=== PATIENT | male | born 1995 | race Caucasian/White ===

== ENCOUNTER 2021-08-25 10:09 | Emergency (ER) | payer OTHER, SELFPAY ==
[2021-08-25 10:23] VITALS: BP 154/82; PULSE 85; RESP 16; TEMP 36.3; O2SAT 99; BMI 20.7
--- NOTE | 2021-08-25 10:28 | ED.UPPEXIN ---
HPI - Extremity Injury (Upper) General Chief Complaint: Wound/Laceration Stated Complaint: Got hand stuck in machine at work Time Seen by Provider: 08/25/21 10:13 Source: patient Mode of arrival: Ambulatory Limitations: no limitations History of Present Illness HPI narrative: 25-year-old male nonsmoker with noncontributory medical history presents with his mother and a chief complaint of a work related injury to his left hand. He works at a local [employer] facility and hand was caught in a conveyor belt. He has multiple lacerations with bleeding to most fingers of his left hand. He has full range of motion no painful. He denies any numbness or tingling. His tetanus will need to be updated. He is otherwise well and free of complaint Related Data Previous Rx's Medication Instructions Recorded cephalexin 500 mg capsule 500 mg PO Q6H 7 Days #28 cap 08/25/21 hydrocodone 5 mg-acetaminophen 325 1 tab PO Q4-6H PRN #10 tab 08/25/21 mg tablet Allergies Allergy/AdvReac Type Severity Reaction Status Date / Time succinylcholine Allergy Severe Anaphylaxis Verified 08/25/21 10:43 Review of Systems Review of Systems Narrative: GENERAL: Denies chills, fatigue, malaise, fever, sweats. HEENT: Denies sinus pain, ear pain, sore throat, difficulty swallowing, dizziness. RESPIRATORY: Denies dyspnea, cough, wheezing, hemoptysis, sputum. CARDIOVASCULAR: Denies chest pain, palpitations, orthopnea, edema, GASTROINTESTINAL: Denies nausea, vomiting, abdominal pain, diarrhea, constipation, melena. : Denies dysuria, frequency, incontinence, hematuria, urinary retention. MUSCULOSKELETAL: See HPI SKIN: Denies rash, skin lesions, or other NEUROLOGIC: see HPI PSYCHIATRIC: No concerning psychosocial issues. 12 point review of systems is negative except for those stated above Patient History Social History Smoking Status: Never smoker Smoking Status: Never smoker alcohol intake frequency: 0-2 drinks per day Substance Use Type: does not use Exam Narrative Exam Narrative: GENERAL: [25 year old patient appears stated age. Well-developed patient, in mild distress. HEAD: Atraumatic. Normocephalic. EYES: Pupils equal round and reactive. Extraocular motions intact. No scleral icterus. No injection or drainage. ENT: Nose without bleeding, purulent drainage. Throat without erythema, tonsillar hypertrophy or exudate. Airway patent. NECK: Trachea midline. Non tender CARDIOVASCULAR: Regular rate and rhythm without murmurs, gallops, or rubs. RESPIRATORY: Clear to auscultation. Breath sounds equal bilaterally. No wheezes, rales, or rhonchi. GASTROINTESTINAL: Abdomen soft, non-tender, nondistended. EXTREMITIES: Multiple injuries to fingers of left hand including a 2 x 1 cm area of soft tissue loss overlying the lateral portion of the proximal phalanx of the 5th finger, no active bleeding or suturable tissue. Full range of motion and sensation. Fourth finger has a small 0.5 cm deep laceration at the base, medial side of proximal phalanx with minimal active bleeding, no loss of strength or sensation. No obvious tendon involvement. Middle finger has a deep irregular 1.5 cm laceration overlying the PIP. This is visualized in a bloodless field and tendon glide is noted. No foreign body noted. Patient has full strength with flexion and extension of the finger. Sensation intact. Tip of index finger is macerated, no obvious nail, nail bed or nail fold involvement. Very irregular laceration without obvious tissue loss. BACK: Nontender without deformity or crepitance. No flank tenderness. NEURO: AOx3. SKIN: No rash or erythema of visible areas Initial Vital Signs Initial Vital Signs: Vital Signs Temperature 97.4 F L 08/25/21 10:23 Pulse Rate 85 08/25/21 10:23 Respiratory Rate 16 08/25/21 10:23 Blood Pressure 154/82 H 08/25/21 10:23 Pulse Oximetry 99 08/25/21 10:23 Procedures Laceration Repair Laceration 1: Site: hand (multiple sutures in multiple portions of 3rd and 4th fingers) Side (If applicable): left Size (cm): 4 (in total) Description: stellate and irregular Depth: involves muscle layer Local Anesthetic: lidocaine 1% and with bicarb Amount of anesthesia used (mL): 4 Pre-repair: wound explored, irrigated extensively and deep structures intact Skin layer closed with: nylon Size (cm): 5-0 Number of sutures: 14 Nerve Block Nerve Block 1: Time out performed: Yes Local Anesthetic: lidocaine 1% and with bicarb Amount of anesthesia used (mL): 4 Side: left Nerve Blocks: digital (index finger) Orthopedic Splinting/Casting Injury #1: Side: left Upper Extremity Injury Location: hand Upper Extremity Immobilizer: volar splint Post splinting neuro exam: intact Post splinting vascular exam: intact Placed by: Nursing Course Orders Ordered: Discontinued Medications Hydrocodone Bitart/Acetaminophen (Hydrocodone/Acet 5/325 Tablet) 1 tab PO NOW ONE Stop: 08/25/21 12:22 Last Admin: 08/25/21 12:27 Dose: 1 tab Documented by: EDVIN Diphtheria/Tetanus/Acell Pertussis (Tet,Diph,Pertuss(Acell),Vac/Pf 0.5 Ml Syringe) 0.5 ml IM .ONCE ONE Stop: 08/25/21 10:30 Last Admin: 08/25/21 10:44 Dose: 0.5 ml Documented by: EDVIN Lidocaine/Sodium Bicarbonate (Lido 1%/Sod Bicarb 8.4% (10ml) 10 Ml Syringe) 10 ml INJ NOW ONE Stop: 08/25/21 10:33 Last Admin: 08/25/21 10:44 Dose: 10 ml Documented by: EDVIN Vital Signs Vital signs: Vital Signs - 8 hr 08/25/21 13:20 Pulse Rate 75 Respiratory Rate 16 Blood Pressure 159/105 H Pulse Oximetry 97 MDM - Extremity Injury (Upper) Imaging Data Extremity x-ray #1: Radiologist's Impression: [address] [address] XRay Report Signed Patient: Abrahan Chung MR#: [id number] : 1995 Acct:[id number] Age/Sex: 25 / M Date of Service: 08/25/21 Loc: ED Accession Number: [id number] ?? Procedure: XR hand LT min 3V Ordering Provider: Al Wilson D.O. PROCEDURE:? XR HAND LT MIN 3V ? INDICATIONS:? hand caught in conveyor belt, multiple injuries ? TECHNIQUE:? 3 views of the hand(s) acquired.? ? COMPARISON:? None. ? FINDINGS:? ? Bones:? No fractures or dislocations.? Carpal bones are normally aligned.? No suspicious bony lesions.? ? Soft tissues:? Multiple soft tissue injuries are seen.? Areas of soft tissue gas are seen. ? ? IMPRESSION:? No salazar, displaced fracture can be seen. ? Multiple areas of soft tissue injury can be seen, including soft tissue gas. ? If there is point tenderness (or other clinical suspicion for a fracture not seen on these images) please consider a dedicated CT for further evaluation. ? ? ? Dictated by: Isrrael Finnegan M.D. on 08/25/2021 at 9:52 ? ? Approved by: Isrrael Finnegan M.D. on 08/25/2021 at 9:53 ? MDM Narrative Medical decision making narrative: Multiple soft tissue injuries of left hand in a work related incident with no apparent bony involvement. There are deep lacerations but tendons appear intact. Multiple superficial lacerations repaired. Wound care performed. Discharge Plan Departure Patient Disposition: Home Clinical Impression: Laceration, Avulsion of skin Instructions: How to Care for a Laceration After Repair, DI for Laceration Repair Activity Restrictions/Additional Instructions: *You have been diagnosed with [multiple injuries and lacerations with tissue loss to left hand. X-rays are very reassuring and there is no obvious bony injury. Also, as we discussed there is no obvious tendon injury. *What to do: *Please continue to take your regular medications as directed. [ x] New medication prescriptions sent to your pharmacy: [[facility]] [ ] New medication written as a paper prescription [ ] No new medications given * as we discussed, I have faxed a referral to our wound care clinic, also I have electronically transmitted a copy of today's note and encourage you to follow-up with [facility]. Please call Friday morning and let them know that you were seen and evaluated in the emergency department and we asked that he be seen in follow-up *If you do not have a primary care provider please contact the [facility] Resource line at [phone]. They will ask some questions about your medical history and help get you set up with a doctor in the community. *Return to Emergency Department if you should have any new, worsening or concerning symptoms, such as [fever greater than 101 F, shaking chills, worsening pain, persistent vomiting or other bothersome symptoms] You have been prescribed a short course of narcotic medications. These are potentially dangerous and addictive medications that should be used carefully. While on these medications you cannot drive or operate heavy machinery. Additionally, you cannot sign legal documents or perform any duties such as this. 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 Please understand that we cannot provide further refills of narcotics or controlled substances through the ED and your pain management will need to be through your Primary Care Provider Prescriptions: New cephalexin 500 mg capsule 500 mg PO Q6H 7 Days Qty: 28 RF: 0 hydrocodone-acetaminophen 5-325 mg tablet 1 tab PO Q4-6H PRN (Reason: pain) Qty: 10 RF: 0 Referrals: Arnold Stuart MD [Physician] - Mat Mccormack MD [Physician] - Stand Alone Forms: Work Release Note
--- NOTE | 2021-08-25 10:29 | DI.RAD.S_ITS ---
PROCEDURE: XR HAND LT MIN 3V INDICATIONS: hand caught in conveyor belt, multiple injuries TECHNIQUE: 3 views of the hand(s) acquired. COMPARISON: None. FINDINGS: Bones: No fractures or dislocations. Carpal bones are normally aligned. No suspicious bony lesions. Soft tissues: Multiple soft tissue injuries are seen. Areas of soft tissue gas are seen. IMPRESSION: No salazar, displaced fracture can be seen. Multiple areas of soft tissue injury can be seen, including soft tissue gas. If there is point tenderness (or other clinical suspicion for a fracture not seen on these images) please consider a dedicated CT for further evaluation. Dictated by: Isrrael Finnegan M.D. on 08/25/2021 at 9:52 Approved by: Isrrael Finnegan M.D. on 08/25/2021 at 9:53
[2021-08-25] MEDS: TET,DIPH,PERTUSS(ACELL),VAC/PF 0.5 ML SYRINGE IM (10:44)
[2021-08-25] MEDS: LIDO 1%/SOD BICARB 8.4% (10ML) 10 ML SYRINGE INJ (10:44)
[2021-08-25] MEDS: HYDROCODONE/ACET 5/325 TABLET 1 TAB PO (12:27)
--- NOTE | 2021-08-25 13:17 | PC.NURSE ---
Avulsions and sutured areas covered with a thin film of bacitractin after wound was thoroughly soaked and dried. Avulsions covered with xeroform gauze and sutures covered with non adherent gauze fingers wrapped with kerlix. 2nd and 3rd digit splinted together with finger splints. CMS intact on discharge.
[2021-08-25 13:20] VITALS: BP 159/105; PULSE 75; RESP 16; O2SAT 97
== END 2021-08-25 13:22 | disposition home or self-care (01) ==
PROVIDERS: Emergency Provider Emergency Medicine
DX: S66.59 Other injury of intrinsic muscle, fascia and tendon of other and unspecified finger at wrist and hand level (principal); S61.215A Laceration without foreign body of left ring finger without damage to nail, initial encounter; S61.213A Laceration without foreign body of left middle finger without damage to nail, initial encounter; S61.211A Laceration without foreign body of left index finger without damage to nail, initial encounter; W31.89XA Contact with other specified machinery, initial encounter; Y99.0 Civilian activity done for income or pay; Z23 Encounter for immunization
CPT/HCPCS: 13132; 64450; 73130; 90471; 99284; 90715

== ENCOUNTER → 2021-08-28 15:02 | Outpatient (CLI) | payer OTHER, SELFPAY | PROVIDERS: PCP Emergency Medicine; Referring Provider Emergency Medicine; Visit Provider Family Medicine | DX: S61.402A Unspecified open wound of left hand, initial encounter (principal); S61.502A Unspecified open wound of left wrist, initial encounter | CPT/HCPCS: 99204; 99214 ==

== ENCOUNTER → 2021-09-03 13:36 | Outpatient (CLI) | payer OTHER, SELFPAY | PROVIDERS: PCP Emergency Medicine; Referring Provider Emergency Medicine; Visit Provider Family Medicine | DX: S61.412A Laceration without foreign body of left hand, initial encounter (principal); S60.812A Abrasion of left wrist, initial encounter | CPT/HCPCS: 99212; 99213 ==

== ENCOUNTER → 2021-09-11 13:59 | Outpatient (CLI) | payer OTHER, SELFPAY | PROVIDERS: PCP Emergency Medicine; Referring Provider Emergency Medicine; Visit Provider Family Medicine | DX: S60.812A Abrasion of left wrist, initial encounter (principal); S61.412A Laceration without foreign body of left hand, initial encounter | CPT/HCPCS: 11042 ==

== ENCOUNTER → 2021-09-18 13:13 | Outpatient (CLI) | payer OTHER, SELFPAY | PROVIDERS: PCP Emergency Medicine; Referring Provider Emergency Medicine; Visit Provider Family Medicine | DX: S61.412A Laceration without foreign body of left hand, initial encounter (principal); S60.812D Abrasion of left wrist, subsequent encounter | CPT/HCPCS: 97597 ==

== ENCOUNTER → 2021-09-24 13:06 | Outpatient (CLI) | payer OTHER, SELFPAY | PROVIDERS: PCP Emergency Medicine; Referring Provider Emergency Medicine; Visit Provider Family Medicine | DX: S61.412A Laceration without foreign body of left hand, initial encounter (principal) | CPT/HCPCS: 97597 ==

== ENCOUNTER → 2021-10-01 12:57 | Outpatient (CLI) | payer OTHER, SELFPAY | PROVIDERS: PCP Emergency Medicine; Referring Provider Emergency Medicine; Visit Provider Family Medicine | DX: S61.402D Unspecified open wound of left hand, subsequent encounter (principal) | CPT/HCPCS: 99212; 99213 ==

== ENCOUNTER 2025-02-04 08:37 | Day surgery (SDC) | payer OTHER, SELFPAY ==
--- NOTE | 2025-02-04 | PATH_ITS ---
[facility] Accession Number: [id number] No. of containers..03 Tissue . 01 Material submitted: . PART A: stomach - ANTRUM PART B: esophagus, E-G Junction - GE JUNCTION PART C: esophagus - LOWER ESOPHAGUS . 01 Diagnosis: A. ANTRUM: Mild chronic gastritis. No Helicobacter pylori organisms identified on immunohistochemical evaluation. No intestinal metaplasia, dysplasia, or malignancy. . B. GE JUNCTION: Squamocolumnar junctional mucosa with mild chronic inflammation. No goblet cell metaplasia or fungal organisms identified. No dysplasia or malignancy. . C. LOWER ESOPHAGUS: Esophageal squamous epithelium with no significant diagnostic alterations. No evidence of increased intraepithelial eosinophils. No fungal organisms, dysplasia, or malignancy. [facility] 02/09/2025 1051 Local . 01 Electronically signed: . Alondra Castro MD, Pathologist NPI- [id number] . 01 Gross description: . Part A: ANTRUM: Received in formalin are 2 fragment(s) of jack, soft tissue measuring 0.1 x 0.1 x 0.1 cm to 0.3 x 0.3 x 0.2 cm submitted entirely in 1 cassette(s) Part B: GE JUNCTION: Received in formalin are 3 fragment(s) of jack, soft tissue measuring 0.1 x 0.1 x 0.1 cm to 0.3 x 0.3 x 0.2 cm submitted entirely in 1 cassette(s) Part C: LOWER ESOPHAGUS: Received in formalin are 2 fragment(s) of jack, soft tissue measuring 0.3 x 0.3 x 0.2 cm to 0.4 x 0.4 x 0.2 cm submitted entirely in 1 cassette(s) /[facility] 02/05/2025 0129 Local . 01 Microscopic: . A. An immunohistochemical stain was performed to evaluate for Helicobacter organisms and is negative. The control stain showed appropriate reactivity. . . * This test was developed and the performance characteristics were validated by [facility]. It has not been cleared or approved by the U.S. Food and Drug Administration. . 01 Pathologist provided ICD-10: K29.70, K21.9 . 01 CPT . 910542, 490459, 376819, [id number] Specimen Comment: A courtesy copy of this report has been sent to [facility] Performed at: [address] [id number] MD Josh Mackey MD Phone: [phone]
[2025-02-04 09:25] VITALS: BP 133/66; PULSE 79; RESP 17; TEMP 36.6; O2SAT 99
--- NOTE | 2025-02-04 10:22 | PM.HP.IH.1 ---
History of Present Illness History of Present Illness Date Patient Seen: 02/04/25 Time Patient Seen: 10:22 Chief complaint: EGD w/poss bx Narrative: This is a 29-year-old white male who, in 2018, underwent an EGD as part of a larger workup for suspected reflux and cough. It was discovered that his cough was actually related to lisinopril which improved after the lisinopril was stopped. Regardless, the EGD was performed and biopsies were obtained which showed some gastropathy and intestinal metaplasia. He does not have a cough, he does not have abdominal pain, he does not have reflux symptoms. Wears an MH bracelet. Saw cardiology, good exercise tolerance. [facility] Medical History Migraines History of developmental delay (~1999) Scoliosis (~2004) Meningitis Pulmonary stenosis (~93) Pseudotumor cerebri (~1994) Surgical History Anesthesia History of tonsillectomy and adenoidectomy (~2005) History of surgery (~2001) Family History Father Hypertension Mother Rheumatoid arthritis Brother Von Willebrand disease Grandfather History of heart disease Hypertension Grandmother Diabetes mellitus History of heart disease Hypertension Stroke Grandfather Hypertension Grandmother Diabetes mellitus Hypertension Mental health problem Alzheimer's disease Social History marital status: unmarried,single household members: none lives independently: Yes occupational status: employed Smoking Status: Current some day smoker alcohol intake: current substance use type: does not use Meds Home Medications and Allergies Home Medications Medication Instructions Recorded Confirmed Type amoxicillin 500 mg tablet 2,000 mg (4 x 500 mg) PO ONCE #12 12/02/24 02/04/25 Rx tabs amlodipine 5 mg-olmesartan 40 mg 1 tab PO DAILY 02/04/25 02/04/25 History tablet Allergies Allergy/AdvReac Type Severity Reaction Status Date / Time succinylcholine Allergy Severe Anaphylaxis Verified 02/04/25 09:15 Exam Vital Signs (past 8 hours): - 02/04/25 09:25 Temperature 97.8 F Pulse Rate 79 Respiratory Rate 17 Blood Pressure 133/66 Pulse Oximetry 99 Oxygen Delivery Method Room Air Oxygen Delivery Method Room Air Narrative Exam Narrative: Gen: NAD, sitting comfortably in bed, appears well HEENT: Sclera are anicteric, head is normocephalic and atraumatic, trachea is midline. CV: RRR, no JVD Resp: clear to auscultation bilaterally, equal chest wall movement bilaterally Abd: soft, nontender, normoactive bowel sounds Ext: no edema, full range of motion Neuro: Cranial nerves II-XII grossly intact, no focal deficits Skin: No erythema or ecchymosis Assessment & Plan Assessment and plan (1) Abnormal findings on esophagogastroduodenoscopy (EGD): Status: Acute Assessment & Plan narrative: Patient presents for EGD Risks, benefits, alternatives to colonoscopy explained, including but not limited to esophageal perforation or other serious complication requiring surgery at less than 1 in 5000 colonoscopies, abdominal pain, cramping or bleeding and less than 1% of EGD, and the chances that we find a diagnosis that would require further intervention of about 2%. Patient agrees to proceed. Time-Based Coding :: [TOTAL MINUTES] spent with patient and on the chart (including review of chart, obtaining history, exam, reviewing outside data, placing orders, documenting exam and treatment plan, and counseling patient) on [DATE]. [employer] Project Manager Document charge(s): No
--- NOTE | 2025-02-04 10:35 | PM.OP.EGD ---
Operative Date/Time/Diagnoses Date of procedure: 02/04/25 Time of procedure: 10:35 Pre-op diagnosis: History of Aldridge's Post-op diagnosis: same Procedure & Clinicians Study performed: Esophagogastroduodenoscopy with biopsies Same procedure as scheduled: Yes Indications: History of Aldridge's Surgeon: Hermelindo Alvarado Procedure Notes SCOAP/Timeout: Performed Procedure in detail: Consent obtained. Time-out performed. Bite block was placed. Mac was induced. The gastroscope was inserted through the bite block in the 2nd portion of the duodenal. Duodenal appeared normal. There was mild antral gastritis identified by erythema of the antrum. Biopsies were obtained. Retroflexed view did not demonstrate any significant hiatal hernia. Z-line was noted 40 cm. There was irregularity of Z-line consistent with a previous diagnosis of Aldridge's. GE junction biopsies were obtained. Lower esophageal biopsies were obtained. The remainder of the esophagus appeared normal. Gastroscope was removed. Sedation minutes: 3 Findings: Aldridge's esophagus and gastritis Specimen(s): other (1. Antral biopsy 2. GE junction biopsy 3. Lower esophageal biopsy) Complications: none Impression: Irregular Z-line Post-procedure Recommendations: Reflux diet and Other recommendation(s) (EGD in 3 years if still demonstrates Barretts) Plan for aftercare: Home with mother Follow up: as needed Disposition: PACU
[2025-02-04 10:40] VITALS: BP 90/48; PULSE 84; RESP 12; TEMP 36.2; O2SAT 95
[2025-02-04 10:45] VITALS: BP 95/50; PULSE 74; RESP 16; O2SAT 96
[2025-02-04 10:50] VITALS: BP 95/56; PULSE 70; RESP 16; TEMP 36.4; O2SAT 96
[2025-02-04 10:55] VITALS: BP 111/61; PULSE 66; RESP 15; TEMP 36.4; O2SAT 98
[2025-02-04 11:00] VITALS: BP 104/64; PULSE 70; RESP 15; TEMP 36.4; O2SAT 97
== END 2025-02-04 11:17 | disposition home or self-care (01) ==
PROVIDERS: PCP Family Medicine; Referring Provider Surgery; Visit Provider Surgery
PROC: 0DJ08ZZ Inspection of Upper Intestinal Tract, Via Natural or Artificial Opening Endoscopic (ICD-10-PCS; CPT 43239; principal; 2025-02-04 10:00)
DX: K22.70 Barrett's esophagus without dysplasia (principal); Z87.19 Personal history of other diseases of the digestive system; F17.210 Nicotine dependence, cigarettes, uncomplicated; K29.50 Unspecified chronic gastritis without bleeding
CPT/HCPCS: 43239; J2704; J3010

== ENCOUNTER → 2025-03-16 08:24 | Outpatient (CLI) | payer OTHER, SELFPAY ==
--- NOTE | 2025-03-16 08:26 | DI.NM.S_ITS ---
PROCEDURE: NM EXERCISE TREADMILL NON NUC COMPARISON: None. INDICATIONS: CP/NONRHEUMATIC PULM VALVE STENOSIS FINDINGS: The patient exercised for 13 minutes and 57 seconds reaching 95% of maximum predicted heart rate. Appropriate BP response to exercise. Average exercise tolerance (14.8METS, WIL 0%). No diagnostic ST changes, no ectopy and no angina during exercise or recovery. IMPRESSION: Low risk, normal treadmill ECG only stress test from inducible ischemia standpoint and with average exercise tolerance (WIL 0%). Dictated by: Nathanael Belcher MD on 03/16/2025 at 13:33 Approved by: Nathanael Belcher MD on 03/16/2025 at 13:36
--- NOTE | 2025-03-16 08:26 | DI.ECHO.S_ITS ---
[place] [facility] : : [address] : : [place] : : [id number] : : Phone: [phone] Echocardiogram Report + + :Name: VIVIANA RAPP Study Date: 03/16/2025 Height: 68 in : :[facility] ReadingLocation: Weight: 165 lb : : Gender: Male BSA: 1.9 m2 : :: 1995 Age: 29 yrs BP: 111/68 mmHg: :Reason For Study: CHEST PAIN/ PULMONIC VALVE STENOSIS : :Ordering Physician: OMAR VIVAR Performed By: Ayaka Augustine : :Referring: OMAR VIVAR : + + Interpretation Summary 1. The left ventricular contractility is normal. Estimated ejection fraction is greater than 55% with no segmental wall motion abnormalities. No LVH. No diastolic dysfunction. 2. The right ventricular contractility is normal. 3. All cardiac chambers are of normal size. 4. Trace to mild tricuspid regurgitation. Estimated pulmonary systolic artery pressure is 19 mmHg. 5. Trace to mild pulmonic insufficiency with no pulmonic valvular stenosis. 6. No obvious intracardiac masses nor thrombi. 7. No obvious intracardiac shunts. 8. No hemodynamically significant pericardial effusion. 9. Low right-sided filling pressures. Conclusion: Normal biventricular function with no significant valvular abnormalities. Procedure: A two-dimensional transthoracic echocardiogram with color flow and Doppler was performed. The study quality was technically adequate. There is no prior echocardiogram noted for this patient. The patient was in sinus rhythm with heart rates between 79-87 bpm during the exam. Left Ventricle: The left ventricle is normal in size and wall thickness. The ejection fraction is estimated to be 55-60%. Diastolic parameters suggest probable normal left ventricular diastolic function and normal filling pressures. Right Ventricle: The right ventricle is normal in size and function. Atria: The left atrial size is normal. Right atrial size is normal. There is no Doppler evidence for an interatrial shunt. Mitral Valve: The mitral valve leaflets appear normal. There is no evidence of stenosis, fluttering, or prolapse. There is no mitral regurgitation noted. Aortic Valve: The aortic valve is not well visualized. The aortic valve opens well. There is no aortic valve stenosis. No aortic regurgitation is present. Tricuspid Valve: The tricuspid valve leaflets are thin and pliable. There is mild tricuspid regurgitation. The right ventricular systolic pressure is estimated to be at least 19 mmHg based on an estimated right atrial pressure of 3 mm Hg. Pulmonic Valve: The pulmonic valve leaflets are thin and pliable; valve motion is normal. There is no pulmonic valvular stenosis. Pulmonic valve max pressure gradient of 6.9mmHg and a mean pressure gradient of 3.35mmHg. There is mild pulmonic regurgitation. Great Vessels: The aortic root is normal size. The dimensions of the ascending aorta are normal. The IVC is of normal diameter and collapses greater than 50% with a sniff. This suggests a low right atrial pressure of 3 mm Hg. Pericardium/ Pleura There is no pericardial effusion. There is no pleural effusion. MMode/2D Measurements & Calculations LVIDd: 4.6 cm LVOT diam: 2.0 cm LVIDs: 3.1 cm Ao root diam: 2.8 cm FS: 32.1 % asc Aorta Diam: 2.9 cm IVSd: 0.70 cm Ao Arch Diam (Prox Trans): 2.5 cm LVPWd: 0.62 cm LV pham. diameter/BSA (cm/m^2): 2.4 LV sys. diameter/BSA (cm/m^2): 1.6 LA A2 area: 13.1 cm2 RA long axis: 4.2 cm LA A4 area: 11.8 cm2 RA area: 11.5 cm2 LA length (vol): 4.6 cm RA vol: 26.7 ml LA vol: 28.2 ml RA : 14.2 ml/m2 LA vol index: 15.0 ml/m2 IVC diam: 1.4 cm RVD1 (basal): 3.8 cm RVOT Distal_phl: 2.6 cm RVD2 (mid): 3.5 cm RVOT Prox_phl: 2.6 cm TAPSE: 1.8 cm Doppler Measurements & Calculations Ao V2 max: 134.5 cm/sec LVOT Max Luis: 114.2 cm/sec Ao V2 mean: 89.1 cm/sec LV V1 max P.2 mmHg Ao max P.2 mmHg LV V1 VTI: 21.6 cm Ao mean P.7 mmHg ASHLEE(I,D): 2.8 cm2 Ao V2 VTI: 24.2 cm ASHLEE(V,D): 2.7 cm2 sev ratio: 0.89 ASHLEE indexed to BSA (cm^2/m^2): 1.5 MV E max luis: 88.1 cm/sec TR max luis: 202.0 cm/sec MV A max luis: 68.8 cm/sec TR max P.3 mmHg MV E/A: 1.3 PA V2 max: 131.4 cm/sec Med Peak E' Luis: 13.2 cm/sec PA V2 mean: 85.3 cm/sec E/E' med: 6.7 PA mean P.4 mmHg Lat Peak E' Luis: 14.8 cm/sec PA pr(Accel): 18.6 mmHg E/E' lat: 6.0 E/e' average: 6.3 MV dec time: 0.17 sec SV(LVOT): 67.9 ml Reading Physician:MAYELIN
== END ==
LOC: DI 08:25
PROVIDERS: PCP Family Medicine; Referring Provider Internal Medicine; Visit Provider Internal Medicine
DX: I07.1 Rheumatic tricuspid insufficiency (principal); I37.0 Nonrheumatic pulmonary valve stenosis; R07.9 Chest pain, unspecified
CPT/HCPCS: 93017; 93306